=== PATIENT | female | born 1990 | race African-American/Black ===

== ENCOUNTER 2017-02-19 08:17 | Emergency (ER) | payer OTHER ==
[2017-02-19 08:23] VITALS: BP 109/65
[2017-02-19] MEDS ORDERED: Ibuprofen TAB* 600 MG PO ONE (08:40)
--- NOTE | 2017-02-19 08:46 | ED ---
Lower Extremity - HPI Summary HPI Summary: 26F presents with left ankle pain and right knee pain s/p fall on Monday. States was at work and slipped on some water and landed on her left ankle, right knee, and left wrist. She states that it did not hurt that bad initially but she was at work all day yesterday and it started to hurt more. She has been ambulating with a limp. She also states the left side of her neck to her shoulder feels shift and that she feels she has lost some ROM of her neck due to the stiffness. She denies any numbness or tingling. She is right handed. She is diabetic. She has not taken anything for her pain. - History of Current Complaint Chief Complaint: EDExtremityLower Stated Complaint: LEFT ANKLE INJURY Time Seen by Provider: 02/19/17 08:29 Hx Last Menstrual Period: Nuva ring Pain Intensity: 7 - Allergies/Home Medications Allergies/Adverse Reactions: Allergies Allergy/AdvReac Type Severity Reaction Status Date / Time Bee Venom Allergy Swelling Verified 02/19/17 08:19 Of Face,Lips,& Throat PMH/Surg Hx/FS Hx/Imm Hx Endocrine/Hematology History: Denies: Hx Diabetes Respiratory History: Reports: Hx Asthma - Surgical History Surgery Procedure, Year, and Place: Infectious Disease History: No Infectious Disease History: Denies: Traveled Outside the [place] in Last 30 Days - Family History Known Family History: Positive: Cardiac Disease - Social History Alcohol Use: Rare Substance Use Type: Reports: Marijuana Smoking Status (MU): Never Smoked Tobacco Review of Systems Negative: Fever Negative: Chest Pain Negative: Shortness Of Breath Positive: Myalgia - left ankle, right knee, left neck stiffness All Other Systems Reviewed And Are Negative: Yes Physical Exam Triage Information Reviewed: Yes Vital Signs On Initial Exam: Initial Vitals Temp Pulse Resp BP Pulse Ox 97.8 F 77 18 109/65 100 02/19/17 08:19 02/19/17 08:19 02/19/17 08:19 02/19/17 08:19 02/19/17 08:19 Vital Signs Reviewed: Yes Appearance: Positive: Well-Appearing Skin: Positive: Warm, Dry Head/Face: Positive: Normal Head/Face Inspection Eyes: Positive: Normal, Conjunctiva Clear ENT: Positive: Normal ENT inspection, Pharynx normal, TMs normal Respiratory/Lung Sounds: Positive: Clear to Auscultation, Breath Sounds Present Cardiovascular: Positive: Normal, RRR Musculoskeletal: Positive: Other - good pulses, capillary refill < 2 secs, tenderness across left ankle with mild edema present, tenderness around patella of right knee. no mildine tenderness to neck. muscle spasms felt of trapezius muscle on left side Diagnostics - Vital Signs Vital Signs Temp Pulse Resp BP Pulse Ox 02/19/17 08:19 97.8 F 77 18 109/65 100 - Laboratory Lab Statement: Any lab studies that have been ordered have been reviewed, and results considered in the medical decision making process. - Radiology left ankle Xray Interpretation: Positive (See Comments) - IMPRESSION: SOFT TISSUE SWELLING , EVIDENCE OF REMOTE TRAUMA. NO ACUTE OSSEOUS INJURY. IF SYMPTOMS PERSIST, RECOMMEND REPEAT IMAGING. Radiology Interpretation Completed By: Radiologist right knee Xray Interpretation: No Acute Changes - IMPRESSION: NO ACUTE OSSEOUS INJURY. IF SYMPTOMS PERSIST, RECOMMEND REPEAT IMAGING. Radiology Interpretation Completed By: Radiologist Lower Extremity Course/Dx - Course Course Of Treatment: 26F presents with left ankle, right knee, and left sided neck pain since monday. She states feel on left ankle and knee. She has been able to ambulate since. She states did not fall onto neck. She feel on left side of palm which has full ROM and nontender too. She states that her neck feels stiff and she has muscle spasms there. no midline tenderness so did not get xray. xray ankle shows no acute fracture shows remote avulsion fx so placed in solitario and will treat as sprain. xray right knee normal. gave course of muscle relaxers for neck pain. patient understands and agrees with plan - Diagnoses Differential Diagnosis/HQI/PQRI: Positive: Fracture (Closed), Sprain, Strain Provider Diagnoses: Left ankle sprain, Right knee pain, Neck pain on left side Discharge - Discharge Plan Condition: Good Disposition: HOME Prescriptions: Cyclobenzaprine TAB* [Flexeril 10 MG TAB*] 10 mg PO TID PRN #9 tab PRN Reason: Pain Patient Education Materials: Ankle Sprain (ED) Referrals: Erik Taylor DO [Primary Care Provider] - Additional Instructions: Stay off ankle as possible as possible Ice, elevate, keep in SOLITARIO Ibuprofen every 6 hours for pain Take muscle relaxer three times a day for [address] neck pain Place heat on neck area Follow up with primary if no improvement in 7 days Return to ED if develop any new or worsening symptoms
--- NOTE | 2017-02-19 09:14 | RAD ---
HISTORY: Fall, right knee pain COMPARISONS: May 06, 2011 VIEWS: 4, Frontal, lateral, axial, and oblique views of the right knee FINDINGS: BONE DENSITY: Normal. BONES: There is no displaced fracture. There is a small superior patellar enthesophyte. JOINTS: There is no arthropathy. There is no suprapatellar joint effusion or lipohemarthrosis. ALIGNMENT: There is no dislocation. SOFT TISSUES: Unremarkable. OTHER FINDINGS: None. IMPRESSION: NO ACUTE OSSEOUS INJURY. IF SYMPTOMS PERSIST, RECOMMEND REPEAT IMAGING.
--- NOTE | 2017-02-19 09:15 | RAD ---
HISTORY: Fall, left ankle pain COMPARISONS: None VIEWS: 3, Frontal, lateral, and oblique views of the left ankle FINDINGS: BONE DENSITY: Normal. BONES: There is remote posttraumatic deformity to the distal tibia. There is a well-corticated bone fragment off the distal fibula consistent with remote avulsion injury. There is no acute displaced fracture. JOINTS: There is no arthropathy. ALIGNMENT: There is no dislocation. SOFT TISSUES: There is circumferential soft tissue swelling. OTHER FINDINGS: None. IMPRESSION: SOFT TISSUE SWELLING, EVIDENCE OF REMOTE TRAUMA. NO ACUTE OSSEOUS INJURY. IF SYMPTOMS PERSIST, RECOMMEND REPEAT IMAGING.
== END 2017-02-19 10:39 | disposition home or self-care (01) ==
LOC: ED 08:17
DX: S93.402A Sprain of unspecified ligament of left ankle, initial encounter (principal); M25.561 Pain in right knee; M25.572 Pain in left ankle and joints of left foot; W19.XXXA Unspecified fall, initial encounter; Y93.9 Activity, unspecified; Y92.9 Unspecified place or not applicable; Y99.9 Unspecified external cause status
CPT/HCPCS: 99282; A9270-GY

== ENCOUNTER 2018-03-10 19:43 | Emergency (ER) | payer OTHER ==
[2018-03-10 20:01] VITALS: BP 131/69
[2018-03-10] MEDS ORDERED: Tetan/Diph/Pertus SYR(Tdap)* 0.5 ML SYR(BOOSTRIX) use SYR IM ONE (20:23)
--- NOTE | 2018-03-10 20:24 | UC ---
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 APPLIED SILVADENE AND WRAPPED WITH AN SOLITARIO BANDAGE. TOOK 800 MG OF IBUPROFEN AND CAME HERE TO . UNKNOWN DATE OF LAST TETANUS - History of Current Complaint Chief Complaint: UCBurn Stated Complaint: FOOT INJURY Time Seen by Provider: 03/10/18 20:08 Hx Obtained From: Patient Hx Last Menstrual Period: 1 MONTH AGO Occurred: Hours Ago Length of Exposure: Seconds Onset Severity: Moderate Current Severity: Moderate Pain Intensity: 10 Pain Scale Used: 0-10 Numeric Location: RLE - RIGHT FOOT Character: Scald, Blisters: Intact, Blisters: Ruptured Aggravating Factor(s): Other - TOUCH Alleviating Factor(s): Cool Soaks Occupational Injury: Yes - Allergy/Home Medications Allergies/Adverse Reactions: Allergies Allergy/AdvReac Type Severity Reaction Status Date / Time bee venom protein (honey bee) Allergy Severe Anaphylatic Verified 03/10/18 20:02 Shock PMH/Surg Hx/FS Hx/Imm Hx Previously Healthy: Yes - Surgical History Surgical History: Yes Surgery Procedure, Year, and Place: - Family History Known Family History: Positive: Cardiac Disease, Hypertension - Social History Alcohol Use: Occasionally Substance Use Type: None Smoking Status (MU): Current Every Day Smoker Type: Cigarettes Amount Used/How Often: 1 PACK/WEEK - Immunization History Most Recent Tetanus Shot: UNKNOWN Review of Systems Constitutional: Negative Skin: Other - BURN Respiratory: Negative Cardiovascular: Negative Gastrointestinal: Negative All Other Systems Reviewed And Are Negative: Yes Physical Exam Triage Information Reviewed: Yes Appearance: Well-Appearing, Well-Nourished, Pain Distress Vital Signs: Initial Vital Signs Temp 98.6 F 03/10/18 19:54 Pulse 80 03/10/18 19:54 Resp 18 03/10/18 19:54 BP 131/69 03/10/18 19:54 Pulse Ox 96 03/10/18 19:54 Vital Signs Reviewed: Yes Eyes: Positive: Conjunctiva Clear ENT: Positive: Hearing grossly normal Neck: Positive: Supple Respiratory: Positive: No respiratory distress, No accessory muscle use Cardiovascular: Positive: Pulses Normal Abdomen Description: Positive: Soft Musculoskeletal: Positive: ROM Intact Neurological: Positive: Alert Psychological: Positive: Age Appropriate Behavior Skin: Positive: Other - ERYTHEMA AND BLISTERING ACROSS TOP OF RIGHT FOOT. 1 INTACT BLISTER (1CM X 1.5CM) AND 1 RUPTURED BLISTER (2.5CM X 2CM). EXTREMELY TENDER Burn Calculation - Mcneal Formula for Fluid Resuscitation Weight: 145.15 kg 24 -Hour Fluid Replacement: 0.0 Course/Dx Burn - Diagnoses Clinic Provider Diagnoses: SPFL PARTIAL THICKNESS BURN - RIGHT FOOT Discharge - Sign-Out/Discharge Documenting (check all that apply): Discharge/Admit/Transfer - Discharge Plan Condition: Stable Disposition: HOME Prescriptions: Cephalexin CAP* [Keflex 500 CAP*] 1,000 mg PO BID #20 cap HYDROcodone/ACETAMIN 5-325 MG* [[place] 5-325 TAB*] 1 tab PO Q6H PRN #12 tab MDD 4 PRN Reason: Pain Ibuprofen TAB* [Motrin TAB* 800 MG] 800 mg PO Q8H PRN #30 tab PRN Reason: Pain Patient Education Materials: Second Degree Burn (ED) Referrals: Erik Taylor DO [Primary Care Provider] - If Needed Additional Instructions: TAKE THE ANTIBIOTIC FOR THE FULL COURSE TO HELP PREVENT DEVELOPING INFECTION. IBUPROFEN FOR DISCOMFORT AND HYDROCODONE/APAP FOR BREAKTHROUGH PAIN. KEEP COVERED WITH ANTIBIOTIC OINTMENT AND NON STICK DRESSING. COOL PACKS FOR DISCOMFORT. TETANUS IMMUNIZATION GIVEN (TDAP): You have been given an immunization against tetanus. Please record this in your records. In general, a booster is needed only once every 10 years. The tetanus shot protects against tetanus or "lockjaw," which is a complication of certain wound infections (the tetanus shot cannot protect against the actual infection). The immunization site may become warm and red due to local reaction. If this occurs, apply warm compresses and take aspirin or ibuprofen to reduce inflammation and discomfort. Return for evaluation if the reaction becomes severe. - Billing Disposition and Condition Condition: STABLE Disposition: Home
[2018-03-10] MEDS ORDERED: HYDROcodone/ACETAMIN 5-325 MG* 1 TAB PO ONE (20:35)
== END 2018-03-10 21:00 | disposition home or self-care (01) ==
LOC: UCEAST 19:43
DX: T25.221A Burn of second degree of right foot, initial encounter (principal); X11.8XXA Contact with other hot tap-water, initial encounter; Y93.G1 Activity, food preparation and clean up; Y92.15 Reform school as the place of occurrence of the external cause; Y99.0 Civilian activity done for income or pay; Z23 Encounter for immunization; Z91.030 Bee allergy status; Z82.49 Family history of ischemic heart disease and other diseases of the circulatory system
CPT/HCPCS: 90471; 90715; 99212; G0463

== ENCOUNTER 2019-02-21 08:18 | Emergency (ER) | payer BC, OTHER ==
[2019-02-21 08:39] VITALS: BP 133/72
[2019-02-21] MEDS ORDERED: predniSONE TAB* 20 MG PO ONE (08:39)
[2019-02-21] MEDS ORDERED: Famotidine TAB* 20 MG PO ONE (08:39)
[2019-02-21] MEDS ORDERED: diPHENhydraMINE PO* 50 MG PO ONE (08:39)
--- NOTE | 2019-02-21 08:39 | UC ---
Allergic Reaction HPI - HPI Summary HPI Summary: 28-year-old female comes in with a chief complaint of allergic reaction. Patient was at work this morning and she was using some cleaning solution to clean a runny when her hands started itching and swelling and she also felt some throat tightness and shortness of breath. When she stopped any left from the throat tightness and shortness of breath went away. Hands of continued to be swollen and red and itchy. She is not taken any medications. - History of Current Complaint Chief Complaint: UCAllergicReaction Stated Complaint: SKIN COMPLAINT Time Seen by Provider: 02/21/19 08:38 Hx Last Menstrual Period: 01/31/19 Pain Intensity: 7 - Allergies/Home Medications Allergies/Adverse Reactions: Allergies Allergy/AdvReac Type Severity Reaction Status Date / Time bee venom protein (honey bee) Allergy Severe Anaphylatic Verified 02/21/19 08:31 Shock wasp sting Allergy Anaphylatic Uncoded 02/21/19 08:31 Shock Home Medications: Home Medications Multivitamin [Multivitamins] 1 cap PO DAILY 02/21/19 [History Confirmed 02/21/19 ] PMH/Surg Hx/FS Hx/Imm Hx Previously Healthy: Yes - Surgical History Surgical History: Yes Surgery Procedure, Year, and Place: - Family History Known Family History: Positive: Cardiac Disease, Hypertension - Social History Alcohol Use: Occasionally Substance Use Type: None Smoking Status (MU): Current Every Day Smoker Type: Cigarettes Amount Used/How Often: 1 PACK/month Household Exposure Type: Cigarettes - Immunization History Most Recent Tetanus Shot: UNKNOWN Review of Systems All Other Systems Reviewed And Are Negative: Yes Constitutional: Positive: Negative Skin: Positive: Other - SEE HPI Eyes: Positive: Negative ENT: Positive: Other - SEE HPI Respiratory: Positive: Other - SEE HPI Cardiovascular: Positive: Negative Gastrointestinal: Positive: Negative Motor: Positive: Negative Neurovascular: Positive: Negative Musculoskeletal: Positive: Negative Neurological: Positive: Negative Psychological: Positive: Negative Is Patient Immunocompromised?: No Physical Exam Triage Information Reviewed: Yes Appearance: Well-Appearing, No Pain Distress, Well-Nourished Vital Signs: Initial Vital Signs Temp 98 F 02/21/19 08:24 Pulse 76 02/21/19 08:24 Resp 18 02/21/19 08:24 BP 133/72 02/21/19 08:24 Pulse Ox 97 05/30/19 08:24 Vital Signs Reviewed: Yes Eye Exam: Normal Eyes: Positive: Conjunctiva Clear ENT: Positive: Pharynx normal, TMs normal. Negative: Muffled voice, Hoarse voice Neck: Positive: Supple Respiratory: Positive: Lungs clear, Normal breath sounds Cardiovascular: Positive: RRR Musculoskeletal: Positive: Strength Intact, ROM Intact Neurological: Positive: Alert, Muscle Tone Normal Psychological Exam: Normal Psychological: Positive: Age Appropriate Behavior Skin: Positive: Other - B/L HAND ERYTHEMA AND SWELLING, WORST ON PALMS. Allergic Reaction Course/Dx - Course Course Of Treatment: IMPROVED IN CLINIC. NO AIRWAY INVOLVEMENT. - Differential Dx/Diagnosis Provider Diagnosis: Contact dermatitis Discharge - Sign-Out/Discharge Documenting (check all that apply): Patient Departure All imaging exams completed and their final reports reviewed: No Studies - Discharge Plan Condition: Stable Disposition: HOME Prescriptions: Famotidine TAB* [Pepcid 20 MG TAB*] 20 mg PO BID PRN #8 tab PRN Reason: Allergy Symptoms predniSONE TAB* [Deltasone 20 MG TAB*] 40 mg PO DAILY PRN #8 tab PRN Reason: Allergy Symptoms Patient Education Materials: Contact Dermatitis (ED) Forms: *Work Release Referrals: Erik Taylor DO [Primary Care Provider] - Additional Instructions: TAKE BENADRYL 50MG EVERY 6 HOURS NEEDED. TAKE PEPCID 20MG TWICE A DAY NEEDED. TAKE THE PREDNISONE DIRECTED NEEDED. FOLLOW UP WITH YOUR DOCTOR IF NOT COMPLETELY IMPROVED. GET RECHECKED SOONER IF YOUR CONDITION WORSENS; MORE OR PERSISTENT SWELLING, DIFFICULTY SWALLOWING OR BREATHING OR ANY QUESTIONS OR CONCERNS. - Billing Disposition and Condition Condition: STABLE Disposition: Home
== END 2019-02-21 09:45 | disposition home or self-care (01) ==
LOC: UCEAST 08:18
DX: L25.3 Unspecified contact dermatitis due to other chemical products (principal); F17.210 Nicotine dependence, cigarettes, uncomplicated; Z91.030 Bee allergy status
CPT/HCPCS: 99212; A9270-GY; G0463; J7512